=== PATIENT | male | born 1965 | race Caucasian/White ===

== ENCOUNTER 2016-09-15 22:13 | Emergency (ER) | payer MEDICAID ==
[~2016-09-15] VITALS: Ht 170.2 cm; Wt 68.7 kg
[~2016-09-15 22:13] MED LIST: ALBU18HF IH; BACL-19 PO; CLON0.1T12 PO; FOLI-17 PO; LEVE250T28 PO; LORA-445 PO; LORA2TAB PO; MULT1TAB81 PO; None per pt; PRED1TAB PO; PROP20TA PO; THIA100T6 PO
[2016-09-15 22:15] VITALS: BP 116/79
[2016-09-15] MEDS ORDERED: HYDROcodone/APAP 5/325 TABLET PO ONE (23:00)
[2016-09-15] MEDS ORDERED: HYDROcodone/APAP 5/325 TABLET ONE (23:00)
[2016-09-16] MEDS ORDERED: LIDOCAINE 1%, 20ML ONE (00:20)
[2016-09-16] MEDS ORDERED: HYDROcodone/APAP 5/325 TABLET PO STA (00:39)
[2016-09-16] MEDS ORDERED: CEPHALEXIN 500 MG CAPSULE PO STA (00:39)
[2016-09-16] MEDS ORDERED: CEPHALEXIN 500 MG CAPSULE ONE (00:45)
[2016-09-16] MEDS ORDERED: SULFAMETH./TRIMETHOPRIM DS 800MG/160MG TABLET ONE (00:45)
[2016-09-16] MEDS ORDERED: HYDROcodone/APAP 5/325 TABLET ONE (00:45)
[2016-09-16] MEDS ORDERED: SULFAMETH./TRIMETHOPRIM DS 800MG/160MG TABLET PO ONE (01:00)
== END 2016-09-16 01:12 | disposition home or self-care (01) ==
LOC: ED 23:59
DX: L02.412 Cutaneous abscess of left axilla (principal); J44.9 Chronic obstructive pulmonary disease, unspecified; I10 Essential (primary) hypertension; G40.909 Epilepsy, unspecified, not intractable, without status epilepticus; E87.6 Hypokalemia
CPT/HCPCS: 10060

== ENCOUNTER 2017-09-03 16:29 | Emergency (ER) | payer MEDICAID ==
[~2017-09-03] VITALS: Ht 175.3 cm; Wt 66.5 kg
[2017-09-03 16:32] VITALS: BP 155/106
== END 2017-09-03 18:29 | disposition home or self-care (01) ==
LOC: ED 17:25
DX: L02.01 Cutaneous abscess of face (principal); F17.200 Nicotine dependence, unspecified, uncomplicated
CPT/HCPCS: 10160; 99284

== ENCOUNTER 2017-10-27 14:23 | Emergency (ER) | payer MEDICAID ==
[~2017-10-27] VITALS: Ht 175.3 cm; Wt 76.4 kg
[~2017-10-27 14:23] MED LIST changes: -THIA100T6 PO; +THIA100T67 PO
[2017-10-27] MEDS ORDERED: SODIUM CHLORIDE 0.9% 1,000 ML IV ONE (14:51)
[2017-10-27] MEDS ORDERED: ONDANSETRON ODT 4 MG ONE (14:57)
[2017-10-27] MEDS ORDERED: FAMOTIDINE 20 MG/2 ML ONE (14:57)
[2017-10-27] MEDS ORDERED: METOCLOPRAMIDE 5 MG/ML, 2ML ONE (15:00)
[2017-10-27] MEDS ORDERED: SODIUM CHLORIDE 0.9% 1,000ML IVBOLUS ONE (15:00)
[2017-10-27] MEDS ORDERED: METOCLOPRAMIDE 5 MG/ML, 2ML IVPush ONE (15:00)
[2017-10-27] MEDS ORDERED: FAMOTIDINE 20 MG/2 ML IVP ONE (15:00)
[2017-10-27] MEDS ORDERED: PROMETHAZINE 25 MG/ML, 1ML IM ONE (15:00)
[2017-10-27 15:17] LABS: MEAN CORPUSCULAR HGB CONC 34.4 g/dL (33.2-36.2); MEAN CORPUSCULAR VOLUME 101.8 fL (81-97); MEAN PLATELET VOLUME 7.4 fL (7.4-10.4); PLATELET COUNT 178 x10^3/uL (130-400); RED BLOOD COUNT 4.64 x10^6/uL (4.38-5.82); RED CELL DISTRIBUTION WIDTH 14.6 % (9.4-14.8)
[2017-10-27 15:30] LABS: ALANINE AMINOTRANSFERASE 112 U/L (12-78); ALBUMIN 3.6 g/dL (3.4-5.0); ANION GAP 10 mmol/L (5-15); CALCIUM 8.6 mg/dL (8.5-10.1); CHLORIDE 104 mmol/L (98-107); CREATININE 0.61 mg/dL (0.7-1.3)
[2017-10-27 15:34] LABS: ALKALINE PHOSPHATASE 119 U/L (45-117); BILIRUBIN,TOTAL 0.7 mg/dL (0.2-1.0); TOTAL PROTEIN 7.3 g/dL (6.4-8.2); TROPONIN I < 0.015 ng/mL (0.000-0.045)
[2017-10-27 15:43] LABS: BASOPHILS # (AUTO) 0.11 x10^3/uL (0-0.1); BASOPHILS % (AUTO) 1 % (0-1); EOSINOPHILS # (AUTO) 0.03 x10^3/uL (0-0.4); EOSINOPHILS % (AUTO) 0 % (1-7); LYMPHOCYTES # (AUTO) 2.64 x10^3/uL (1-3.4); LYMPHOCYTES % (AUTO) 23 % (22-44); MD SCAN; MONOCYTES # (AUTO) 1.87 x10^3/uL (0.2-0.8); MONOCYTES % (AUTO) 16 % (2-9); NEUTROPHILS % (AUTO) 60 % (42-75)
[2017-10-27 15:53] LABS: MICROSCOPIC NOT IND
[2017-10-27 15:55] LABS: CULTURE INDICATED? NO
[2017-10-27 17:03] VITALS: BP 105/68
== END 2017-10-27 17:06 | disposition home or self-care (01) ==
LOC: ED 14:46
DX: K29.20 Alcoholic gastritis without bleeding (principal); R74.0 Nonspecific elevation of levels of transaminase and lactic acid dehydrogenase [LDH]; J44.9 Chronic obstructive pulmonary disease, unspecified; G40.909 Epilepsy, unspecified, not intractable, without status epilepticus; I10 Essential (primary) hypertension; M19.90 Unspecified osteoarthritis, unspecified site; R51 Headache
CPT/HCPCS: 36415; 70450; 71045; 80053; 81003; 83690; 84484; 85025; 93005; 96361; 96374; 96375; 99285; J2765; J7030; S0028

== ENCOUNTER 2018-01-27 20:29 | Emergency (ER) | payer MEDICAID ==
[~2018-01-27] VITALS: Ht 175.3 cm; Wt 68.1 kg
[2018-01-27 21:19] LABS: BASOPHILS # (AUTO) 0.09 x10^3/uL (0-0.1); BASOPHILS % (AUTO) 2 % (0-1); EOSINOPHILS # (AUTO) 0.04 x10^3/uL (0-0.4); EOSINOPHILS % (AUTO) 1 % (1-7); LYMPHOCYTES # (AUTO) 1.96 x10^3/uL (1-3.4); LYMPHOCYTES % (AUTO) 34 % (22-44); MD NO; MEAN CORPUSCULAR HGB CONC 34.6 g/dL (33.2-36.2); MEAN CORPUSCULAR VOLUME 101.2 fL (81-97); MEAN PLATELET VOLUME 6.9 fL (7.4-10.4); MONOCYTES # (AUTO) 1.07 x10^3/uL (0.2-0.8); MONOCYTES % (AUTO) 19 % (2-9); NEUTROPHILS # (AUTO) 2.64 x10^3/uL (1.8-6.8); NEUTROPHILS % (AUTO) 46 % (42-75); PLATELET COUNT 230 x10^3/uL (130-400); RED BLOOD COUNT 4.85 x10^6/uL (4.38-5.82); RED CELL DISTRIBUTION WIDTH 13.4 % (9.4-14.8)
[2018-01-27 21:32] LABS: ALANINE AMINOTRANSFERASE 57 U/L (12-78); ALBUMIN 3.8 g/dL (3.4-5.0); ANION GAP 10 mmol/L (5-15); CHLORIDE 107 mmol/L (98-107); CREATININE 0.74 mg/dL (0.7-1.3)
[2018-01-27 21:36] LABS: ALKALINE PHOSPHATASE 84 U/L (45-117); BILIRUBIN,TOTAL 0.4 mg/dL (0.2-1.0); TOTAL PROTEIN 7.2 g/dL (6.4-8.2); TROPONIN I < 0.015 ng/mL (0.000-0.045)
[2018-01-27 22:14] VITALS: BP 113/79
== END 2018-01-27 22:17 | disposition home or self-care (01) ==
LOC: ED 21:32
DX: R07.89 Other chest pain (principal); J44.9 Chronic obstructive pulmonary disease, unspecified; I10 Essential (primary) hypertension; G43.909 Migraine, unspecified, not intractable, without status migrainosus; F17.200 Nicotine dependence, unspecified, uncomplicated; Z87.19 Personal history of other diseases of the digestive system; Z87.01 Personal history of pneumonia (recurrent); Z88.6 Allergy status to analgesic agent
CPT/HCPCS: 36415; 71045; 80053; 84484; 85025; 93005; 99284

== ENCOUNTER 2018-05-12 07:33 | Emergency (ER) | payer MEDICAID ==
[~2018-05-12] VITALS: Ht 170.2 cm; Wt 66.0 kg
--- NOTE | 2018-05-12 07:42 | NUR ---
rt called for treatment
[2018-05-12] MEDS ORDERED: EPINEPHRINE 1 MG/ML, 1ML ONE (07:45)
[2018-05-12] MEDS ORDERED: ONDANSETRON 2MG/ML, 2ML ONE (07:51)
[2018-05-12] MEDS ORDERED: ALBUTEROL SULFATE 2.5 MG/3 ML ONE (07:52)
[2018-05-12 07:55] LABS: BASOPHILS # (AUTO) 0.04 x10^3/uL (0-0.1); BASOPHILS % (AUTO) 0 % (0-1); EOSINOPHILS # (AUTO) 0.03 x10^3/uL (0-0.4); EOSINOPHILS % (AUTO) 0 % (1-7); LYMPHOCYTES # (AUTO) 1.54 x10^3/uL (1-3.4); LYMPHOCYTES % (AUTO) 12 % (22-44); MD NO; MEAN CORPUSCULAR HEMOGLOBIN 33.8 pg (27.5-34.5); MEAN CORPUSCULAR VOLUME 102.5 fL (81-97); MEAN PLATELET VOLUME 7.3 fL (7.4-10.4); MONOCYTES # (AUTO) 1.09 x10^3/uL (0.2-0.8); MONOCYTES % (AUTO) 9 % (2-9); NEUTROPHILS # (AUTO) 9.83 x10^3/uL (1.8-6.8); NEUTROPHILS % (AUTO) 79 % (42-75); PLATELET COUNT 256 x10^3/uL (130-400); RED BLOOD COUNT 4.48 x10^6/uL (4.38-5.82); RED CELL DISTRIBUTION WIDTH 14.1 % (9.4-14.8)
[2018-05-12] MEDS ORDERED: EPINEPHRINE 1 MG/ML, 1ML IM ONE (08:00)
[2018-05-12] MEDS ORDERED: ONDANSETRON 2MG/ML, 2ML IVPush ONE (08:00)
[2018-05-12] MEDS ORDERED: SODIUM CHLORIDE FLUSH 10ML SYR IVF ONE (08:00)
[2018-05-12] MEDS ORDERED: ALBUTEROL SULFATE 2.5 MG/3 ML NPPB ONE (08:00)
[2018-05-12 08:06] LABS: ALBUMIN 3.2 g/dL (3.4-5.0); ANION GAP 8 mmol/L (5-15); CHLORIDE 110 mmol/L (98-107); CREATININE 0.65 mg/dL (0.7-1.3)
--- NOTE | 2018-05-12 08:08 | NUR ---
THIS IS A 53 YEAR OLD MALE WHO WAS BIB BY AMBULANCE DUE TO BILATERAL PERIORBITAL EDEMA. SLIGHT UPPER WHEEZES BILATERALLY. PT STATE HE IS INTOXICATED. PLACED ON SUPERVISOR TELLERS SINUS TACHY, SPO2 PLACED ON 2LNC, CYLCLE VS. BEDRAILS UP X 2, CALL LIGHT IN PLACE. ICE TO FACE. MEDICATED PER ORDERS.
[2018-05-12 08:42] LABS: INTERNATIONAL NORMALIZED RATIO 0.93 (0.93-1.1); PROTHROMBIN TIME 9.8 Seconds (9.6-11.5)
--- NOTE | 2018-05-12 08:57 | NUR ---
CREPITUS NOTED UPPER NECK. PT BACK FROM CT SCAN, OXYMASK ON 4LNC
[2018-05-12] MEDS ORDERED: OMNIPAQUE 350 MG/ML, 75ML BOTTLE ONE (09:12)
--- NOTE | 2018-05-12 09:49 | NUR ---
AT BS. PT HAVING SEIZURE, DR. KATHLEEN AT BS. MOVED PATIENT TO TRAUMA PAIN, REPORT TO MICHEL RN, PLAN OF CARE DISCUSSED.
[2018-05-12] MEDS ORDERED: LORazepam 2 MG/ML, 1ML ONE (09:56)
--- NOTE | 2018-05-12 10:09 | NUR ---
Assumed care of patient at this time after witnessed seizure. Bedside report received from Nahid Hardy RN. Patient given Ativan 1mg IV push with Dr. Perez at the bedside. Patient is now drowsy, oriented x4 with family at bedside. Patient with generalized swelling, unable to open eyes due to swelling. Seizure precautions in place, suction setup at bedside.
[2018-05-12 10:36] VITALS: BP 145/96
--- NOTE | 2018-05-12 10:49 | NUR ---
Report to [facility], patient transported to [facility]. Plan of care updated with patient.
[2018-05-12] MEDS ORDERED: LORazepam 2 MG/ML, 1ML IVPush ONE (11:00)
== END 2018-05-12 10:52 | disposition short-term general hospital (02) ==
LOC: ED 10:45
DX: G40.319 Generalized idiopathic epilepsy and epileptic syndromes, intractable, without status epilepticus (principal); F10.220 Alcohol dependence with intoxication, uncomplicated; J98.2 Interstitial emphysema; J44.9 Chronic obstructive pulmonary disease, unspecified; I10 Essential (primary) hypertension
CPT/HCPCS: 36415; 70450; 70486; 71045; 71260; 72125; 80048; 80307; 82040; 85025; 85610; 85730; 93005; 94640; 96372; 96374; 99291; J0171; J2060; J7512; J7613; Q9967

== ENCOUNTER 2018-08-28 00:12 | Emergency (ER) | payer MEDICAID ==
[~2018-08-28] VITALS: Ht 176.5 cm; Wt 64.1 kg
[2018-08-28 00:24] VITALS: BP 123/82
--- NOTE | 2018-08-28 01:29 | NUR ---
NOT IN LOBBY FOR BLOOD DRAW A [id number]
--- NOTE | 2018-08-28 01:40 | NUR ---
NOT IN LOBBY
--- NOTE | 2018-08-28 01:41 | NUR ---
PT NOT IN LOBBY X3, LWBS
== END 2018-08-28 01:46 | disposition left against medical advice (07) ==
LOC: ED 01:35
DX: R42 Dizziness and giddiness (principal); F10.129 Alcohol abuse with intoxication, unspecified; Z53.21 Procedure and treatment not carried out due to patient leaving prior to being seen by health care provider
CPT/HCPCS: 71045; 93005; 99281

== ENCOUNTER 2018-09-17 22:28 | Emergency (ER) | payer MEDICAID ==
[~2018-09-17] VITALS: Ht 177.8 cm; Wt 63.0 kg
[2018-09-18 01:19] VITALS: BP 107/85
== END 2018-09-18 02:31 | disposition left against medical advice (07) ==
LOC: ED 09-18 01:54
DX: J44.1 Chronic obstructive pulmonary disease with (acute) exacerbation (principal); L02.01 Cutaneous abscess of face; R09.02 Hypoxemia; I10 Essential (primary) hypertension; F17.200 Nicotine dependence, unspecified, uncomplicated
CPT/HCPCS: 10060; 36415; 71045; 71275; 80053; 80307; 83880; 84484; 85025; 93005; 94640; 96374; 99284; J2930; J7620; Q9967

== ENCOUNTER 2018-12-22 02:22 | Emergency (ER) | payer MEDICAID ==
[~2018-12-22] VITALS: Ht 175.3 cm; Wt 63.5 kg
[~2018-12-22 02:22] MED LIST changes: -PRED1TAB PO; +PRED1TAB19 PO
[2018-12-22 02:25] VITALS: BP 120/82
[2018-12-22 02:53] LABS: BASOPHILS # (AUTO) 0.07 x10^3/uL (0-0.1); BASOPHILS % (AUTO) 1 % (0-1); EOSINOPHILS # (AUTO) 0.03 x10^3/uL (0-0.4); EOSINOPHILS % (AUTO) 0 % (1-7); LYMPHOCYTES # (AUTO) 1.68 x10^3/uL (1-3.4); LYMPHOCYTES % (AUTO) 18 % (22-44); MD NO; MEAN CORPUSCULAR HEMOGLOBIN 34.2 pg (27.5-34.5); MEAN CORPUSCULAR VOLUME 103.6 fL (81-97); MEAN PLATELET VOLUME 6.4 fL (7.4-10.4); MONOCYTES # (AUTO) 1.27 x10^3/uL (0.2-0.8); MONOCYTES % (AUTO) 13 % (2-9); NEUTROPHILS # (AUTO) 6.42 x10^3/uL (1.8-6.8); NEUTROPHILS % (AUTO) 68 % (42-75); PLATELET COUNT 271 x10^3/uL (130-400); RED BLOOD COUNT 4.34 x10^6/uL (4.38-5.82); RED CELL DISTRIBUTION WIDTH 13.7 % (9.4-14.8)
[2018-12-22 03:06] LABS: ALANINE AMINOTRANSFERASE 64 U/L (12-78); ALBUMIN 3.1 g/dL (3.4-5.0); ANION GAP 6 mmol/L (5-15); CHLORIDE 105 mmol/L (98-107); CREATININE 0.54 mg/dL (0.7-1.3)
[2018-12-22 03:10] LABS: ALKALINE PHOSPHATASE 104 U/L (45-117); BILIRUBIN,TOTAL 0.3 mg/dL (0.2-1.0); TOTAL PROTEIN 7.2 g/dL (6.4-8.2); TROPONIN I 0.017 ng/mL (0.000-0.045)
--- NOTE | 2018-12-22 03:58 | NUR ---
PT REFUSING TO WAKE UP FOR DISCHARGE. SECURITY CALLED TO ASSIST.
== END 2018-12-22 04:25 | disposition home or self-care (01) ==
LOC: ED 04:19
DX: J18.9 Pneumonia, unspecified organism (principal); J44.9 Chronic obstructive pulmonary disease, unspecified; G40.909 Epilepsy, unspecified, not intractable, without status epilepticus
CPT/HCPCS: 36415; 71046; 80053; 83880; 84484; 85025; 93005; 99284

== ENCOUNTER 2019-01-12 10:06 | Emergency (ER) | payer MEDICAID ==
[~2019-01-12] VITALS: Ht 175.3 cm; Wt 75.0 kg
--- NOTE | 2019-01-12 10:13 | NUR ---
MICKEY. REPORT RECEIVED FROM EMS. PT C/O GENERALIZED WEAKNESS/COUGH/NASAL CONGESTION. PT HAD PNA ABOUT 1 WEEK AGO. PT DIDN'T COMPLETE ABX. PT'S AOX4. RESPS EVEN AND UNLABORED. BP/SPO2 MONITORS IN PLACE. CALL LIGHT WITHIN REACH.
--- NOTE | 2019-01-12 10:14 | NUR ---
LICE FOUND IN ROOM. NETWORK INTERNS[employer]IP/HOUSEKEEPING NOTIFIED.
[2019-01-12] MEDS ORDERED: SODIUM CHLORIDE 0.9% 1,000 ML IV ONE (10:24)
[2019-01-12] MEDS ORDERED: MAGNESIUM SULFATE 1 GM, THIAMINE 100 MG, FOLIC ACID 1 MG, MVI ADULT 10 ML in SODIUM CHL... IV ONE (10:30)
[2019-01-12] MEDS ORDERED: SODIUM CHLORIDE FLUSH 10ML SYR IVF ONE (10:30)
[2019-01-12 10:54] LABS: BASOPHILS # (AUTO) 0.06 x10^3/uL (0-0.1); BASOPHILS % (AUTO) 1 % (0-1); EOSINOPHILS # (AUTO) 0.09 x10^3/uL (0-0.4); EOSINOPHILS % (AUTO) 1 % (1-7); LYMPHOCYTES # (AUTO) 1.59 x10^3/uL (1-3.4); LYMPHOCYTES % (AUTO) 19 % (22-44); MD NO; MEAN CORPUSCULAR HEMOGLOBIN 34.1 pg (27.5-34.5); MEAN CORPUSCULAR HGB CONC 32.7 g/dL (33.2-36.2); MEAN CORPUSCULAR VOLUME 104.3 fL (81-97); MEAN PLATELET VOLUME 7.2 fL (7.4-10.4); MONOCYTES # (AUTO) 1.25 x10^3/uL (0.2-0.8); MONOCYTES % (AUTO) 15 % (2-9); NEUTROPHILS # (AUTO) 5.38 x10^3/uL (1.8-6.8); NEUTROPHILS % (AUTO) 64 % (42-75); PLATELET COUNT 204 x10^3/uL (130-400); RED BLOOD COUNT 4.41 x10^6/uL (4.38-5.82); RED CELL DISTRIBUTION WIDTH 14.3 % (9.4-14.8)
[2019-01-12 10:57] LABS: ALANINE AMINOTRANSFERASE 114 U/L (12-78); ALBUMIN 3.2 g/dL (3.4-5.0); ANION GAP 9 mmol/L (5-15); CALCIUM 7.8 mg/dL (8.5-10.1); CHLORIDE 108 mmol/L (98-107); CREATININE 0.56 mg/dL (0.7-1.3)
--- NOTE | 2019-01-12 10:58 | NUR ---
PT AWARES OF UA. URINAL AT BEDSIDE.
[2019-01-12 10:59] LABS: ALKALINE PHOSPHATASE 136 U/L (45-117); BILIRUBIN,TOTAL 0.3 mg/dL (0.2-1.0)
--- NOTE | 2019-01-12 11:16 | NUR ---
BANANA BAG AND NS INFUSING AT THIS TIME. PT TOLERATED WELL.
--- NOTE | 2019-01-12 11:26 | NUR ---
IV RATE 250 PER HOUR AT THIS TIME PER EDMD VERBAL ORDER. PT TOLERATED WELL.
[2019-01-12] MEDS ORDERED: PIPERONYL BUTOXIDE/PYRETHRINS SHAMPOO TP SCH (11:30)
--- NOTE | 2019-01-12 12:18 | NUR ---
PT SLEEPING IN [facility]. RESPS EVEN AND UNLABORED. ALL MONITORS IN PLACE. CALL LIGHT WITHIN REACH.
[2019-01-12 14:04] VITALS: BP 127/88
--- NOTE | 2019-01-12 14:04 | NUR ---
PT RESTING IN GURNEY. BANANA BAG STILL INFUSING AT THIS TIME. PT'S AOX4. RESPS EVEN AND UNLABORED. ALL MONITORS IN PLACE. CALL LIGHT WITHIN REACH.
--- NOTE | 2019-01-12 14:24 | NUR ---
PT PROVIDED URINE SAMPLE AT THIS TIME. UA SENT.
[2019-01-12 14:36] LABS: MICROSCOPIC NOT IND
[2019-01-12 14:41] LABS: CULTURE INDICATED? NO
[2019-01-12 14:49] LABS: AMPHETAMINE SCREEN, URINE Negative (Negative); BARBITURATE SCREEN, URINE Negative (Negative); BENZODIAZEPINE SCREEN, URINE Negative (Negative); CANNABINOID SCREEN, URINE Negative (Negative); COCAINE SCREEN, URINE Negative (Negative); METHADONE SCREEN, URINE Negative (Negative); OPIATE SCREEN, URINE Negative (Negative)
[2019-01-12] MEDS ORDERED: LORazepam 1MG TABLET PO ONE (16:00)
--- NOTE | 2019-01-12 16:22 | NUR ---
PT IS IN SHOWER ROOM WITH NEW TOWELS/SOCKS/SHAMPOO. PT GIVEN DC PAPER. PT WHEELED TO SHOWER ROOM. PT'S GF IN SHOWER ROOM. PT'S AOX4. RESPS EVEN AND UNLABORED. TAXI VOUCHER GIVEN AT KS.
== END 2019-01-12 16:25 | disposition home or self-care (01) ==
LOC: ED 13:06
DX: F10.229 Alcohol dependence with intoxication, unspecified (principal); J44.9 Chronic obstructive pulmonary disease, unspecified; I10 Essential (primary) hypertension; G40.909 Epilepsy, unspecified, not intractable, without status epilepticus; Y90.0 Blood alcohol level of less than 20 mg/100 ml
CPT/HCPCS: 36415; 71045; 80053; 80307; 81003; 82140; 83735; 85025; 93005; 96365; 96366; 99284; J3411; J3475; J7030

== ENCOUNTER 2019-05-05 11:48 | Emergency (ER) | payer MEDICAID ==
[~2019-05-05] VITALS: Ht 175.3 cm; Wt 66.3 kg
--- NOTE | 2019-05-05 12:12 | NUR ---
PATIENT ARRIVES WITH COUGH, CONGESTION, SOB, AND BODY ACHES FOR TWO WEEKS. PATIENT WAS HOSPITALIZED AT [facility] FOR PNA TWO WEEKS AGO. PATIENT WAS ALSO WITH GIRLFRIEND IN PARK AND SPRAYED WITH UNKNOWN SUBSTANCE HE THINKS IS PEPPER SPRAY JUST INSOLE TACKER. HE LIVES HOMELESS LONGTERM
[2019-05-05 12:39] VITALS: BP 141/107
--- NOTE | 2019-05-05 12:41 | NUR ---
FIRST CONTACT WITH PT. PT C/O COUGH/ALL OVER THE BODY ACHES AND SPRAYED BY UNKNOWN SUBSTANCE IN PARK THAT STUNG EYES JUST [employer]. PT'S AOX4. RESPS EVEN AND UNLABORED. ALL MONITORS IN PLACE. CALL LIGHT WITHIN REACH. PA AT BEDSIDE TO EVALUATE AT THIS TIME.
[2019-05-05] MEDS ORDERED: ACETAMINOPHEN 500 MG TABLET ONE (12:45)
--- NOTE | 2019-05-05 12:58 | NUR ---
xray in room.
[2019-05-05] MEDS ORDERED: ALBUTEROL/IPRATROPIUM 2.5MG/0.5MG, 3 ML NPPB ONE (13:00)
[2019-05-05] MEDS ORDERED: ACETAMINOPHEN 500 MG TABLET PO ONE (13:00)
[2019-05-05] MEDS ORDERED: SODIUM CHLORIDE FLUSH 10ML SYR IVF ONE (13:00)
--- NOTE | 2019-05-05 13:00 | NUR ---
PT MEDICATED PER EMAR. PT TOLERATED WELL.
[2019-05-05 13:05] LABS: BASOPHILS # (AUTO) 0.04 x10^3/uL (0-0.1); BASOPHILS % (AUTO) 0 % (0-1); EOSINOPHILS # (AUTO) 0.01 x10^3/uL (0-0.4); EOSINOPHILS % (AUTO) 0 % (1-7); LYMPHOCYTES # (AUTO) 1.32 x10^3/uL (1-3.4); LYMPHOCYTES % (AUTO) 15 % (22-44); MD NO; MEAN CORPUSCULAR HEMOGLOBIN 33.6 pg (27.5-34.5); MEAN CORPUSCULAR HGB CONC 33.6 g/dL (33.2-36.2); MEAN CORPUSCULAR VOLUME 99.9 fL (81-97); MEAN PLATELET VOLUME 7.1 fL (7.4-10.4); MONOCYTES # (AUTO) 1.04 x10^3/uL (0.2-0.8); MONOCYTES % (AUTO) 12 % (2-9); NEUTROPHILS # (AUTO) 6.63 x10^3/uL (1.8-6.8); NEUTROPHILS % (AUTO) 73 % (42-75); PLATELET COUNT 188 x10^3/uL (130-400); RED BLOOD COUNT 4.64 x10^6/uL (4.38-5.82)
[2019-05-05 13:16] LABS: ALBUMIN 3.6 g/dL (3.4-5.0); ANION GAP 8 mmol/L (5-15); CALCIUM 8.9 mg/dL (8.5-10.1); CHLORIDE 105 mmol/L (98-107)
[2019-05-05 13:17] LABS: ALANINE AMINOTRANSFERASE 48 U/L (12-78)
[2019-05-05 13:22] LABS: ALKALINE PHOSPHATASE 122 U/L (45-117); BILIRUBIN,TOTAL 0.6 mg/dL (0.2-1.0); CREATININE 0.62 mg/dL (0.7-1.3); TOTAL PROTEIN 7.4 g/dL (6.4-8.2); TROPONIN I < 0.015 ng/mL (0.000-0.045)
[2019-05-05] MEDS ORDERED: ALBUTEROL HFA 90 MCG/SPRAY INH PRN (13:30)
--- NOTE | 2019-05-05 13:41 | NUR ---
1 LITER OF NS USED TO RINSE PT'S FACE OFF FROM WHAT SHE WAS SPRAYED WITH TODAY IN PARK. VERBALIZES SOME RELIEF.
--- NOTE | 2019-05-05 15:06 | NUR ---
Patient given discharge instructions and they have confirmed that they understand the instructions. Patient ambulatory with steady gait.
== END 2019-05-05 15:07 | disposition home or self-care (01) ==
LOC: ED 13:43
DX: J15.9 Unspecified bacterial pneumonia (principal); I10 Essential (primary) hypertension; F17.200 Nicotine dependence, unspecified, uncomplicated
CPT/HCPCS: 36415; 71045; 80053; 83605; 84484; 85025; 87040; 93005; 94640; 99285

== ENCOUNTER 2019-10-28 17:31 | Emergency (ER) | payer MEDICAID ==
[~2019-10-28] VITALS: Ht 175.3 cm; Wt 70.0 kg
--- NOTE | 2019-10-28 18:07 | NUR ---
C/O CHEST PAIN, AND N/V/D, ALSO REPORTS MULTIPLE SEIZURES TODAY AND WAS DRINKING ALCOHOL DURING THE DAY.
--- NOTE | 2019-10-28 19:11 | NUR ---
REPORT GIVEN TO ROXANNA BURTON.
--- NOTE | 2019-10-28 19:13 | NUR ---
REPORT RCD FROM DAY SHIFT RN. LAB PROCESSING BLOOD, PT RESTING COMFORTABLY, VSS, RR EQUAL AND UNLABORED. CALL CLEARY IN REACH. WILL CONTINUE TO MONITOR.
[2019-10-28 19:14] LABS: ALBUMIN 2.7 g/dL (3.4-5.0); ANION GAP 10 mmol/L (5-15); CHLORIDE 105 mmol/L (98-107)
--- NOTE | 2019-10-28 19:18 | NUR ---
LATE NOTE: YESY GÓMEZ AND JACKELYN DE-CONNED PT AND DID EKG. BED BUG NITS AND LICE FOUND.
[2019-10-28 19:20] LABS: ALANINE AMINOTRANSFERASE 62 U/L (12-78); ALKALINE PHOSPHATASE 144 U/L (45-117); BILIRUBIN,TOTAL 0.4 mg/dL (0.2-1.0); CREATININE 0.46 mg/dL (0.7-1.3); TOTAL PROTEIN 6.7 g/dL (6.4-8.2); TROPONIN I < 0.015 ng/mL (0.000-0.045)
[2019-10-28 19:35] LABS: MEAN CORPUSCULAR HEMOGLOBIN 33.2 pg (27.5-34.5); MEAN CORPUSCULAR HGB CONC 33.1 g/dL (33.2-36.2); MEAN CORPUSCULAR VOLUME 100.2 fL (81-97); MEAN PLATELET VOLUME 7.2 fL (7.4-10.4); PLATELET COUNT 154 x10^3/uL (130-400); RED BLOOD COUNT 4.42 x10^6/uL (4.38-5.82); RED CELL DISTRIBUTION WIDTH 14.3 % (9.4-14.8)
[2019-10-28 19:57] LABS: MD YES
[2019-10-28 20:00] LABS: BAND#(MANUAL) 0.38 x10^3/uL; BANDS%(MANUAL) 5 % (0-7); BASOS#(MANUAL) 0.08 x10^3/uL (0-0.1); BASOS% (MANUAL) 1 % (0-1); EOS#(MANUAL) 0.53 x10^3/uL (0.0-0.4); EOS% (MANUAL) 7 % (1-7); LYMPH#(MANUAL) 1.75 x10^3/uL (1-3.4); LYMPHS% (MANUAL) 23 % (22-44); MONOS#(MANUAL) 1.22 x10^3/uL (0.3-2.7); MONOS% (MANUAL) 16 % (2-9); REACTIVE LYMPHS # (MANUAL) 0.15 x10^3/uL (0-0); REACTIVE LYMPHS % (MANUAL) 2 % (0-0); SEGS% (MANUAL) 46 % (42-75)
[2019-10-28 20:01] LABS: HYPOCHROMIA 1+; OVALOCYTES 1+
[2019-10-28 20:02] LABS: <PLATELET ESTIMATE> ADEQUATE; <PLT MORPHOLOGY> NORMAL PLT MORPH
[2019-10-28] MEDS ORDERED: POTASSIUM CHLORIDE 20 MEQ TAB.ER.PRT ONE (20:13)
[2019-10-28] MEDS ORDERED: NS + 20MEQ KCL 1,000 ML IV ONE ×2 (20:14→20:30)
[2019-10-28] MEDS ORDERED: POTASSIUM CHLORIDE 20 MEQ TAB.ER.PRT PO ONE (20:30)
--- NOTE | 2019-10-28 20:30 | NUR ---
MEDICATED PER ORDER, IV PATENT, PT DRINKING PO WATER AND TOOK KDUR W/O DIFFICULTY, ENCOURAGE PO HYDRATION. IV ON PUMP, A/O X4 RR EQUAL AND UNLABORED. VSS. WILL CONTINUE TO MONITOR. AIDET PROVIDED.
--- NOTE | 2019-10-28 20:50 | NUR ---
assumed care of pt. pt here for ETOH and N/V. pt is medicated and currently resting in position of comfort with lights dimmed. pt has been decontaminated per report. IV K+ infusing anf pt eating PO snack. no family currently at bedside
--- NOTE | 2019-10-28 22:00 | NUR ---
pt has been laying on his IV tubing stopping infusion. pt positioning for comfort and tubing moved. Iv flushed and IV infusing without difficulty. pt resting in position of comfort
--- NOTE | 2019-10-28 23:00 | NUR ---
pt infusion completed. pt to be D/C. pt ambulated to without difficulty
--- NOTE | 2019-10-28 23:30 | NUR ---
pt given new clothing as his clothing he was wearing on arrival was discarded. pt valuables are sealed in a bag at bedside
--- NOTE | 2019-10-28 23:40 | NUR ---
pt given belt per request
[2019-10-29 00:32] VITALS: BP 99/60
== END 2019-10-29 00:36 | disposition home or self-care (01) ==
LOC: ED 20:19
DX: R07.89 Other chest pain (principal); K92.2 Gastrointestinal hemorrhage, unspecified; R19.7 Diarrhea, unspecified; R11.2 Nausea with vomiting, unspecified; E87.6 Hypokalemia; F10.120 Alcohol abuse with intoxication, uncomplicated; B85.2 Pediculosis, unspecified; R94.31 Abnormal electrocardiogram [ECG] [EKG]; Z86.73 Personal history of transient ischemic attack (TIA), and cerebral infarction without residual deficits; I10 Essential (primary) hypertension; J44.9 Chronic obstructive pulmonary disease, unspecified; I25.2 Old myocardial infarction; F17.210 Nicotine dependence, cigarettes, uncomplicated; M19.90 Unspecified osteoarthritis, unspecified site; Y90.9 Presence of alcohol in blood, level not specified
CPT/HCPCS: 36415; 71045; 80053; 84484; 85025; 93005; 96365; 96366; 99285; 99406; J3480

== ENCOUNTER 2020-01-27 19:38 | Inpatient (IN) | payer MEDICAID ==
[~2020-01-27] VITALS: Ht 175.3 cm; Wt 64.7 kg
--- NOTE | 2020-01-27 20:19 | NUR ---
PT DECONED, PROVIDED CLEAN GOWN FOR COMFORT, CLOTHING DOUBLE BAGGED, PT NAD, SITTING UP, APPEARS COMFORTABLE. WCNUNO. JENNIE FRANZ AT FOR EVAL AND POC.
--- NOTE | 2020-01-27 20:19 | NUR ---
PT KARSON RIGGS FROM THE PARK, REPORTS COMING IN FOR NEW ONSET FATIGUE AND WEAKNESS, STATES IT IS REALLY DIFFICULT TO WALK. PT REPORTS WORSENING COUGH AND RECENT PNEUMONIA, PT ALSO C/O CP, HAS HX OF MIx2. PULSES 2+, PLACED ON SPO2/BP/ECG MONITORING. WCTM. ONEIL REPORTS PT WAS SURROUNDED BY ALCOHOL BOTTLES UPON ARRIVAL
[2020-01-27] MEDS ORDERED: DIPHENHYDRAMINE 25 MG CAPSULE PO ONE (20:30)
[2020-01-27] MEDS ORDERED: DIPHENHYDRAMINE 25 MG CAPSULE ONE (20:54)
[2020-01-27 20:55] LABS: BASOPHILS % (AUTO) 1 % (0-1); EOSINOPHILS % (AUTO) 3 % (1-7); LYMPHOCYTES % (AUTO) 17 % (22-44); MD NO; MEAN CORPUSCULAR HGB CONC 33.5 g/dL (33.2-36.2); MEAN PLATELET VOLUME 7.2 fL (7.4-10.4); MONOCYTES % (AUTO) 18 % (2-9); NEUTROPHILS % (AUTO) 61 % (42-75); PLATELET COUNT 251 x10^3/uL (130-400); RED BLOOD COUNT 4.26 x10^6/uL (4.38-5.82); RED CELL DISTRIBUTION WIDTH 13.7 % (9.4-14.8)
--- NOTE | 2020-01-27 21:04 | NUR ---
pt resting on coty blount, asking for food, informed we had to wait for test results. pt provided additional warm blankets and urinal for comfort, waiting for iain mckeon.
[2020-01-27 21:06] LABS: ALBUMIN 2.8 g/dL (3.4-5.0); ANION GAP 10 mmol/L (5-15); CALCIUM 8.5 mg/dL (8.5-10.1); CHLORIDE 102 mmol/L (98-107); CREATININE 0.45 mg/dL (0.7-1.3)
[2020-01-27 21:13] LABS: TROPONIN I 0.335 ng/mL (0.000-0.045)
[2020-01-27] MEDS ORDERED: ASPIRIN 81 MG TABLET CHEW ONE (21:54)
--- NOTE | 2020-01-27 21:57 | NUR ---
PT NAD, MEDICATED PER MAR, LAYING ON GURNEY, APPEARS COMFORTABLE, PROVIDED SANDWICH PER REQUEST, WCTM. WAITING FOR ADMIT ORDERS
[2020-01-27] MEDS ORDERED: ASPIRIN 81 MG TABLET CHEW PO ONE (22:00)
--- NOTE | 2020-01-27 22:29 | NUR ---
PT NAD, WATCHING TV ON [employer], ATE 1/2 OF HIS SANDWICH, DENIES ADDITIONAL NEEDS AT THIS TIME. WCTM. WAITING FOR ADMIT ORDERS, NO CHANGE IN CONDITION.
--- NOTE | 2020-01-27 22:30 | NUR ---
PT REPORTS ALL MEDS GOT STOLEN A FEW MONTHS PRIOR SO HE IS NO LONGER TAKING ANY. KATHE, SAMMI.
[2020-01-27] MEDS ORDERED: SODIUM CHLORIDE FLUSH 10ML SYR IVF PRN (23:00)
--- NOTE | 2020-01-27 23:11 | NUR ---
PT NAD, RESTING ON GURSAN LEANDRO, HOSPITAL BED REQUESTED, NO CHANGE IN CONDITION, DENIES ADDITIONAL NEEDS AT THIS TIME, APPEARS COMFORTABLE, WCTM. WAITING FOR ADMIT BED.
--- NOTE | 2020-01-28 00:18 | NUR ---
PT MOVED FROM [facility] TO HOSPITAL BED, PT NAD, APPEARS COMFORTABLE, DENIES ADDITIONAL NEEDS AT THIS TIME. WCTM.
--- NOTE | 2020-01-28 00:24 | NUR ---
REPORT TO AMBER BURTON, PT CARE TRANSFERRED AT THIS TIME. PT NAD, NO CHANGE IN CONDITION
--- NOTE | 2020-01-28 00:30 | NUR ---
REPORT RECEIVED FROM ORION BURTON
--- NOTE | 2020-01-28 01:30 | NUR ---
PT SLEEPING, NO NEEDS AT THIS TIME
--- NOTE | 2020-01-28 03:09 | NUR ---
PT SLEEPING, NO NEEDS AT THIS TIME
--- NOTE | 2020-01-28 04:03 | NUR ---
PT SLEEPING, NO NEEDS AT THIS TIME
[2020-01-28] MEDS ORDERED: GABAPENTIN 300 MG CAPSULE PO PRN (05:30)
[2020-01-28] MEDS ORDERED: POTASSIUM CHLORIDE 20 MEQ, MAGNESIUM SULFATE 2 GM, THIAMINE 200 MG, MVI ADULT 10 ML, FO... IV SCH (05:30)
[2020-01-28] MEDS ORDERED: ONDANSETRON 2MG/ML, 2ML IVPush PRN (05:30)
[2020-01-28] MEDS ORDERED: DIAZEPAM 10 MG TABLET PO SCH (05:30)
[2020-01-28] MEDS ORDERED: DIAZEPAM 5 MG TABLET PO SCH (05:30)
[2020-01-28] MEDS ORDERED: ENALAPRILAT 1.25 MG/ML, 2ML IVPush PRN (05:30)
[2020-01-28] MEDS ORDERED: ACETAMINOPHEN 325 MG TABLET PO PRN (05:30)
[2020-01-28] MEDS ORDERED: LORazepam 2 MG/ML, 1ML IV PRN ×3 (05:30)
[2020-01-28] MEDS ORDERED: NITROGLYCERIN 0.4 MG BOTTLE (25 TABS) SL PRN ×2 (05:30→22:30)
[2020-01-28] MEDS ORDERED: DIAZEPAM 5 MG TABLET ONE (05:58)
[2020-01-28] MEDS ORDERED: ASPIRIN 325 MG TABLET ONE (06:01)
[2020-01-28] MEDS: DIAZEPAM 5 MG TABLET PO SCH ×4 (06:04→22:38)
[2020-01-28] MEDS ORDERED: DIPHENHYDRAMINE 25 MG CAPSULE ONE (06:09)
[2020-01-28] MEDS ORDERED: ASPIRIN 325 MG TABLET EC ONE (06:09)
[2020-01-28] MEDS: ASPIRIN 325 MG TABLET EC PO SCH (06:10)
[2020-01-28] MEDS: DIPHENHYDRAMINE 25 MG CAPSULE PO PRN (06:10)
--- NOTE | 2020-01-28 06:22 | NUR ---
PT STATES ASPIRIN MAKES HIS STOMACH HURT. PT OKAY WITH TAKING ASPIRIN
[2020-01-28 06:27] LABS: BASOPHILS % (AUTO) 1 % (0-1); EOSINOPHILS % (AUTO) 4 % (1-7); LYMPHOCYTES % (AUTO) 11 % (22-44); MEAN CORPUSCULAR HEMOGLOBIN 33.5 pg (27.5-34.5); MEAN CORPUSCULAR HGB CONC 33.4 g/dL (33.2-36.2); MEAN PLATELET VOLUME 7.5 fL (7.4-10.4); MONOCYTES % (AUTO) 17 % (2-9); NEUTROPHILS % (AUTO) 67 % (42-75); PLATELET COUNT 224 x10^3/uL (130-400); RED BLOOD COUNT 3.92 x10^6/uL (4.38-5.82); RED CELL DISTRIBUTION WIDTH 13.6 % (9.4-14.8)
[2020-01-28 06:41] LABS: ALBUMIN 2.6 g/dL (3.4-5.0); ANION GAP 4 mmol/L (5-15); CALCIUM 8.2 mg/dL (8.5-10.1); CHLORIDE 108 mmol/L (98-107)
[2020-01-28 06:44] LABS: ALANINE AMINOTRANSFERASE 40 U/L (12-78); CHOLESTEROL, TOTAL 178 mg/dL (140-239); CREATININE 0.55 mg/dL (0.7-1.3); TRIGLYCERIDES 54 mg/dL (50-200); VLDL CHOLESTEROL 11 mg/dL (0-25)
[2020-01-28 06:50] LABS: ALKALINE PHOSPHATASE 166 U/L (45-117); BILIRUBIN,TOTAL 0.6 mg/dL (0.2-1.0); CHOL/HDL RATIO 1.4; HDL CHOL % 70 % (26-37); HDL CHOLESTEROL (DIRECT) 125 mg/dL (40-60); LDL CHOLESTEROL,CALCULATED 42 mg/dL (54-169); LDL/HDL RATIO 0.3 (0.5-3.0); TOTAL PROTEIN 6.9 g/dL (6.4-8.2)
[2020-01-28 06:57] LABS: MD SCAN
--- NOTE | 2020-01-28 06:58 | NUR ---
report given to damaso thomas
--- NOTE | 2020-01-28 07:57 | NUR ---
PT SITTING UP ON HOSPITAL BED. PT STATES HE FEELS ANXIOUS AND CHETS TIGHTNESS. PT DENIES SSOB. PT VS AND PHYSICAL EXAM COMPLETED.
[2020-01-28 07:58] LABS: AMPHETAMINE SCREEN, URINE Negative (Negative); BARBITURATE SCREEN, URINE Negative (Negative); BENZODIAZEPINE SCREEN, URINE Negative (Negative); CANNABINOID SCREEN, URINE Negative (Negative); COCAINE SCREEN, URINE Negative (Negative); METHADONE SCREEN, URINE Negative (Negative); OPIATE SCREEN, URINE Negative (Negative)
[2020-01-28] MEDS ORDERED: LORazepam 2 MG/ML, 1ML ONE ×2 (08:01→15:47)
[2020-01-28] MEDS: LORazepam 2 MG/ML, 1ML IV PRN ×3 (08:05→19:53)
--- NOTE | 2020-01-28 08:08 | NUR ---
PT MEDICATED PER MAR
--- NOTE | 2020-01-28 10:34 | NUR ---
REPORT FROM NAS BURTON. ASSUMED CARE OF PT AT THIS TIME
[2020-01-28 12:11] LABS: TROPONIN I 0.331 ng/mL (0.000-0.045)
--- NOTE | 2020-01-28 14:48 | NUR ---
PT GIVEN URINAL TO KEEP AT BEDSIDE, GIVEN BLANKET PER REQUEST. VSS, NAD NOTED
--- NOTE | 2020-01-28 16:10 | NUR ---
ADMITTING MD CALLED, ORDERS RECIEVED FOR DIET. PT GIVEN MEAL TRAY, MEDICATED PER MAR, VSS, NAD NOTED
[2020-01-28] MEDS ORDERED: LORazepam 1MG TABLET ONE ×2 (19:49→19:56)
[2020-01-28] MEDS ORDERED: ATORVASTATIN 40 MG TABLET ONE (19:50)
[2020-01-28] MEDS: ATORVASTATIN 40 MG TABLET PO SCH (19:52)
--- NOTE | 2020-01-28 20:14 | NUR ---
PT HAVING CP ON RN ROUNDING. PT STATES HE HAS HAD CP SINCE HE HAS BEEN HERE. PT EXPERIENCING TREMORS/ANXIETY/AGITATION/LYNN/DIAPHORESIS. PT TREATED WITH ATIVAN PER CIWA PROTOCOL. PT GIVEN DINNER. VSS. SAMMI.
[2020-01-28] MEDS ORDERED: MORPHINE SULFATE 4 MG/ML, 1ML ONE ×2 (21:13→23:32)
[2020-01-28] MEDS: morphine SULFATE 10 MG/ML, 1ML IVPush PRN (21:16)
--- NOTE | 2020-01-28 21:53 | NUR ---
RN CALLED REPORT TO CHERYL. TWO VALIUM DOSES HELD BY DAYSHIFT NURSE. DOSES TO BE RESTARTED WITH EVENING DOSE. WCTM.
[2020-01-28 22:09] VITALS: BP 101/69
[2020-01-28] MEDS ORDERED: NITROGLYCERIN 0.4 MG/SPRAY SL PRN (22:30)
[2020-01-28 23:02] VITALS: BP 105/70
[2020-01-28 23:17] VITALS: BP 91/53
[2020-01-28] MEDS ORDERED: morphine SULFATE 10 MG/ML, 1ML IVPush ONE (23:30)
[2020-01-29 01:55] VITALS: BP 131/88
[2020-01-29] MEDS: ASPIRIN 325 MG TABLET EC PO SCH ×2 (02:48→20:11)
[2020-01-29] MEDS ORDERED: DIAZEPAM 5 MG TABLET ONE ×2 (04:17→11:28)
[2020-01-29] MEDS: DIAZEPAM 5 MG TABLET PO SCH ×3 (04:23→20:17)
[2020-01-29] MEDS: POTASSIUM CHLORIDE 20 MEQ, MAGNESIUM SULFATE 2 GM, THIAMINE 200 MG, FOLIC ACID 1 MG in ... IV SCH (05:23)
[2020-01-29] MEDS: morphine SULFATE 10 MG/ML, 1ML IVPush PRN ×3 (05:34→21:25)
[2020-01-29 08:04] VITALS: BP 108/77
[2020-01-29] MEDS: MULTIVITAMIN 1 TABLET PO SCH (08:50)
[2020-01-29 13:33] VITALS: BP 114/79
[2020-01-29 18:53] VITALS: BP 100/64
[2020-01-29] MEDS: ATORVASTATIN 40 MG TABLET PO SCH (20:17)
[2020-01-29] MEDS: DIPHENHYDRAMINE 25 MG CAPSULE PO PRN (20:22)
[2020-01-30 00:19] VITALS: BP 116/80
[2020-01-30] MEDS: DIAZEPAM 5 MG TABLET PO SCH ×4 (01:36→22:13)
[2020-01-30] MEDS: POTASSIUM CHLORIDE 20 MEQ, MAGNESIUM SULFATE 2 GM, THIAMINE 200 MG, FOLIC ACID 1 MG in ... IV SCH (05:49)
[2020-01-30 07:24] VITALS: BP 150/89
[2020-01-30] MEDS: MULTIVITAMIN 1 TABLET PO SCH (08:36)
[2020-01-30] MEDS: CARVEDILOL 3.125 MG TABLET PO SCH ×2 (10:57→18:20)
[2020-01-30] MEDS: LORazepam 2 MG/ML, 1ML IV PRN (12:46)
[2020-01-30 14:27] VITALS: BP 103/68
[2020-01-30 19:30] VITALS: BP 91/54
[2020-01-30] MEDS: ATORVASTATIN 40 MG TABLET PO SCH (22:13)
[2020-01-31 00:35] VITALS: BP 156/98
[2020-01-31 02:15] VITALS: BP 101/69
[2020-01-31] MEDS: DIAZEPAM 5 MG TABLET PO SCH (02:21)
[2020-01-31] MEDS: ASPIRIN 325 MG TABLET EC PO SCH (04:53)
[2020-01-31] MEDS: POTASSIUM CHLORIDE 20 MEQ, MAGNESIUM SULFATE 2 GM, THIAMINE 200 MG, FOLIC ACID 1 MG in ... IV SCH (06:10)
[2020-01-31] MEDS: CARVEDILOL 3.125 MG TABLET PO SCH (06:21)
[2020-01-31 06:41] VITALS: BP 135/88
[2020-01-31] MEDS ORDERED: ASPI-650 PO ×2 (07:35)
[2020-01-31] MEDS ORDERED: CARV3.1212 PO ×3 (07:35→08:55)
[2020-01-31] MEDS ORDERED: ATOR40TA78 PO ×3 (07:35→08:55)
[2020-01-31] MEDS: MULTIVITAMIN 1 TABLET PO SCH (08:38)
[2020-01-31] MEDS ORDERED: OMEP20TA62 PO (08:55)
[2020-01-31] MEDS ORDERED: DIPH28.33 TP (09:01)
== END 2020-01-31 14:00 | disposition home or self-care (01) | DRG 281 ==
LOC: ED 01-28 02:28 → EDIP 01-28 02:48 → 5SO 01-28 22:06
PROVIDERS: ADMIT Family Medicine; ATTEND Hospitalist
DX: I21.4 Non-ST elevation (NSTEMI) myocardial infarction (principal); C18.9 Malignant neoplasm of colon, unspecified; J44.1 Chronic obstructive pulmonary disease with (acute) exacerbation; F10.239 Alcohol dependence with withdrawal, unspecified; B88.8 Other specified infestations; F12.10 Cannabis abuse, uncomplicated; F17.210 Nicotine dependence, cigarettes, uncomplicated; G40.909 Epilepsy, unspecified, not intractable, without status epilepticus; G62.9 Polyneuropathy, unspecified; I10 Essential (primary) hypertension; I25.10 Atherosclerotic heart disease of native coronary artery without angina pectoris; I48.91 Unspecified atrial fibrillation; M19.90 Unspecified osteoarthritis, unspecified site; Y90.9 Presence of alcohol in blood, level not specified; M06.9 Rheumatoid arthritis, unspecified; Z59.0 Homelessness; Z82.49 Family history of ischemic heart disease and other diseases of the circulatory system; Z85.038 Personal history of other malignant neoplasm of large intestine; I25.2 Old myocardial infarction; Z86.73 Personal history of transient ischemic attack (TIA), and cerebral infarction without residual deficits; Z87.01 Personal history of pneumonia (recurrent); Z88.6 Allergy status to analgesic agent; Z91.19 Patient's noncompliance with other medical treatment and regimen; Z88.8 Allergy status to other drugs, medicaments and biological substances; Z79.899 Other long term (current) drug therapy
CPT/HCPCS: 36415; J7042; 71045; 80048; 80053; 80061; 80307; 82040; 83735; 84100; 84443; 84484; 85025; 93005; 93306; G0378; J3411; J3475; J3480; J2060; J2270; J7512; Q0163

== ENCOUNTER 2020-10-31 05:43 | Emergency (ER) | payer MEDICAID ==
[~2020-10-31] VITALS: Ht 175.3 cm; Wt 80.6 kg
[~2020-10-31 05:43] MED LIST changes: +ASPI325T20 PO; +ATOR40TA78 PO; +CARV3.1212 PO; +DIPH28.33 TP; -FOLI-17 PO; +FOLI1TAB32 PO; +OMEP20TA62 PO
--- NOTE | 2020-10-31 05:45 | NUR ---
machine biller: Dr. Rodrigues at bedside to "PIT" patient. Per ERP, patient is to get an EKG and is stable to sit in lobby until a room is available. Patient ambulated to bed from [facility] with no problems and VSS.
--- NOTE | 2020-10-31 05:56 | NUR ---
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 PT PLACED IN LOBBY POST TRIAGE AND EKG PER ERP.
[2020-10-31 07:12] LABS: BASOPHILS % (AUTO) 1 % (0-1); EOSINOPHILS % (AUTO) 7 % (1-7); LYMPHOCYTES % (AUTO) 27 % (22-44); MEAN CORPUSCULAR HEMOGLOBIN 30.3 pg (27.5-34.5); MEAN CORPUSCULAR HGB CONC 33.8 g/dL (33.2-36.2); MEAN PLATELET VOLUME 7.1 fL (7.4-10.4); MONOCYTES % (AUTO) 16 % (2-9); NEUTROPHILS % (AUTO) 48 % (42-75); PLATELET COUNT 331 x10^3/uL (130-400); RED BLOOD COUNT 4.51 x10^6/uL (4.38-5.82); RED CELL DISTRIBUTION WIDTH 16.2 % (9.4-14.8)
[2020-10-31 07:21] LABS: ALBUMIN 3.3 g/dL (3.4-5.0); ANION GAP 3 mmol/L (5-15); CHLORIDE 107 mmol/L (98-107); CREATININE 0.66 mg/dL (0.7-1.3)
[2020-10-31 07:25] LABS: TROPONIN I < 0.015 ng/mL (0.000-0.045)
[2020-10-31 08:12] VITALS: BP 143/92
== END 2020-10-31 08:17 | disposition home or self-care (01) ==
LOC: ED 08:11
DX: R07.89 Other chest pain (principal); I10 Essential (primary) hypertension; I25.2 Old myocardial infarction; J44.9 Chronic obstructive pulmonary disease, unspecified; F17.200 Nicotine dependence, unspecified, uncomplicated; Z86.73 Personal history of transient ischemic attack (TIA), and cerebral infarction without residual deficits
CPT/HCPCS: 36415; 71045; 80048; 82040; 84484; 85025; 93005; 99285